=== PATIENT | male | born 1940 | race Caucasian/White ===

== ENCOUNTER 2019-01-17 08:44 | Day surgery (SDC) | payer OTHER, SELFPAY ==
[2019-01-17 12:43] VITALS: BP 152/83; PULSE 84; RESP 16; TEMP 36.7; O2SAT 96; BMI 27.3
[2019-01-17] MEDS: PROPARACAINE 0.5% OPHTH SOL 2 DROPS EYE-OP (12:56)
[2019-01-17] MEDS: CATARACT EYE COMPOUND (10 DROPS/SYRINGE) 3 DROPS EYE-OP (13:00)
--- NOTE | 2019-01-17 13:29 | PM.PREOP ---
Pre-operative Note Interval Note History & Physical reviewed/Exam performed by Physician: No Changes to H&P: No
--- NOTE | 2019-01-17 13:29 | PM.OP.1 ---
Operative Date/Time/Diagnoses Pre-op diagnosis: Nuclear cataract right eye Procedure & Clinicians Procedure: Cataract Surgery Same procedure as scheduled: Yes Surgeon: Man Mazariegos Anesthesia Type: MAC +/- and Sedation Operative Notes Procedure in detail: Patient brought to the operating suite. Tetracaine drops placed in the right eye. Patient was prepped and draped in sterile manner. Wire lid speculum was placed in the eye. Betadine drops were placed on the eye. This was irrigated. Lidocaine jelly was placed on the eye. A paracentesis port was created with a side-port blade. 0.1 mL 1% preservative free lidocaine was injected into the anterior chamber. The anterior chamber was deepened with viscoelastic. 2.6 mm keratome was used to create a temporal clear corneal incision. Cystotome and Utrata forceps were used to create continuous tear capsulorrhexis. Balanced salt solution was used to hydro dissect the nucleus. The phacoemulsification handpiece was inserted and the nucleus was removed using the stop and chop technique. The irrigation aspiration handpiece was inserted and the remaining cortex was removed. Anterior chamber was deepened with viscoelastic. An Deleon ZCB00 intraocular lens with a power of 21.5 was injected into the capsular bag. Irrigation aspiration handpiece was inserted and the remaining viscoelastic was removed. Incision was hydrated with balanced salt solution and found to be leak free with pressure with Weck-Marcela sponges. 0.1 mL Vigamox injected anterior chamber. 0.3 mL Kenalog 10 mg was injected subconjunctivally. Lid speculum was removed. The patient left the operating room in excellent condition. Complications: none Post-operative Condition: stable Disposition: same day surgery
[2019-01-17] MEDS: CHONDROIDTIN/SOD HYALURONATE 1.05 ML SYRINGE INTRAOCULA (13:47)
[2019-01-17] MEDS: LIDOCAINE JELLY 2% 5 ML 1 APPLIC TOP (13:47)
[2019-01-17] MEDS: PHENYLEPHRINE/LIDOCAINE VIAL (OR) 0.2 ML EYE-OP (13:48)
[2019-01-17] MEDS: MOXIFLOXACIN INJ 5 MG/ML VIAL EYE-OP (13:48)
[2019-01-17] MEDS: BALANCED SALT IRRIG SOLN NO.2 500 ML, EPINEPHrine 1 MG IRR (13:49)
[2019-01-17] MEDS: TRIAMCINOLONE 50 MG/5 ML VIAL INJ (13:49)
[2019-01-17] MEDS: TETRACAINE 0.5% OPHTH DROPS 4 ML 2 DROPS EYE-OP (13:49)
[2019-01-17 14:05] VITALS: BP 148/77; PULSE 63; RESP 16; TEMP 36.8; O2SAT 99
--- NOTE | 2019-01-17 14:26 | SUR.PHASEII ---
1415 Received report that patient was ready to go, getting dressed and needed to be discharged in the computer. Pt transfer into blue wheelchair attended by Zo Thakkar RN; volunteer notified to transport patient. No questions/concerns; DC papers provided to pt by Zo Thakkar RN.
== END 2019-01-17 14:18 | disposition home or self-care (01) ==
PROVIDERS: Family Provider Family Medicine; PCP Family Medicine; Visit Provider Ophthalmology
PROC: (CPT 66984; principal; 2019-01-17 13:45)
DX: H25.11 Age-related nuclear cataract, right eye (principal)
CPT/HCPCS: 66984; J0171; J3301

== ENCOUNTER 2019-01-31 08:39 | Day surgery (SDC) | payer OTHER, SELFPAY ==
[2019-01-31 09:50] VITALS: BP 162/72; PULSE 66; RESP 17; O2SAT 99; BMI 26.9
[2019-01-31] MEDS: CATARACT EYE COMPOUND (10 DROPS/SYRINGE) 3 DROPS EYE-OP (10:14)
[2019-01-31] MEDS: PROPARACAINE 0.5% OPHTH SOL 2 DROPS EYE-OP (10:14)
--- NOTE | 2019-01-31 10:14 | PM.PREOP ---
Pre-operative Note Interval Note History & Physical reviewed/Exam performed by Physician: No Changes to H&P: No
--- NOTE | 2019-01-31 10:15 | PM.OP.1 ---
Operative Date/Time/Diagnoses Pre-op diagnosis: Nuclear Cataract Left eye Post-op diagnosis: same Procedure & Clinicians Surgeon: Man Mazariegos Anesthesia Type: MAC +/- and Sedation Operative Notes Procedure in detail: Patient brought to the operating suite. Tetracaine drops placed in the left eye. Patient was prepped and draped in sterile manner. Wire lid speculum was placed in the eye. Betadine drops were placed on the eye. This was irrigated. Lidocaine jelly was placed on the eye. A paracentesis port was created with a side-port blade. 0.1 mL 1% preservative free lidocaine was injected into the anterior chamber. The anterior chamber was deepened with viscoelastic. 2.6 mm keratome was used to create a temporal clear corneal incision. Cystotome and Utrata forceps were used to create continuous tear capsulorrhexis. Balanced salt solution was used to hydro dissect the nucleus. The phacoemulsification handpiece was inserted and the nucleus was removed using the stop and chop technique. The irrigation aspiration handpiece was inserted and the remaining cortex was removed. Anterior chamber was deepened with viscoelastic. An Deleon ZCB00 intraocular lens with a power of 20.5 was injected into the capsular bag. Irrigation aspiration handpiece was inserted and the remaining viscoelastic was removed. Incision was hydrated with balanced salt solution and found to be leak free with pressure with Weck-Marcela sponges. 0.1 mL Vigamox injected anterior chamber. 0.3 mL Kenalog 10 mg was injected subconjunctivally. Lid speculum was removed. The patient left the operating room in excellent condition. Complications: none Post-operative Condition: stable Disposition: same day surgery
[2019-01-31] MEDS: MOXIFLOXACIN INJ 5 MG/ML VIAL EYE-OP (10:35)
[2019-01-31] MEDS: PHENYLEPHRINE/LIDOCAINE VIAL (OR) 0.2 ML EYE-OP (10:35)
[2019-01-31] MEDS: TRIAMCINOLONE 50 MG/5 ML VIAL INJ (10:35)
[2019-01-31] MEDS: LIDOCAINE JELLY 2% 5 ML 1 APPLIC TOP (10:35)
[2019-01-31] MEDS: TETRACAINE 0.5% OPHTH DROPS 4 ML 2 DROPS EYE-OP (10:36)
[2019-01-31] MEDS: BALANCED SALT IRRIG SOLN NO.2 500 ML, EPINEPHrine 1 MG IRR (10:36)
[2019-01-31 10:51] VITALS: BP 156/72; PULSE 67; RESP 16; TEMP 36.8; O2SAT 98
== END 2019-01-31 11:01 | disposition home or self-care (01) ==
LOC: OR 08:46
PROVIDERS: Family Provider Family Medicine; PCP Family Medicine; Visit Provider Ophthalmology
PROC: (CPT 66984; principal; 2019-01-31 10:45)
DX: H25.12 Age-related nuclear cataract, left eye (principal)
CPT/HCPCS: 66984; J0171; J3301

== ENCOUNTER → 2021-08-27 07:48 | Outpatient (CLI) | payer MEDICARE, SELFPAY ==
--- NOTE | 2021-08-27 | DI.MRI.S_ITS ---
PROCEDURE: MR LUMBAR SPINE WO CON INDICATIONS: Low back pain, unspecified TECHNIQUE: Noncontrast sagittal T1 spin echo and T2 fast echo, sagittal STIR, and T2 fast spin echo through the lumbar spine. In cases with scoliosis, additional coronal T2 fast spin echo may be performed. COMPARISON: [facility], , L-SPINE WITHOUT CONTRAST, 03/12/2015, 15:22. FINDINGS: Image quality: Excellent. Alignment and Curvature: Convex right lumbar scoliosis. Mild retrolisthesis noted at T12-L1 as well as L3-4 Bone Marrow: Transitional anatomy noted. There is partial lumbarization of the S1 vertebral body. There is interval placement of right sided anyi and screw hardware from L1 through S1 with interbody fusions from L2 through S1 as well. Instrumentation appears in good position. Spinal Cord: Conus medullaris terminates at the L1 level. Visualized cord demonstrates normal signal and size. Paraspinous Soft Tissues: No paravertebral masses. T12-L1: Disc space narrowing with circumferential disc bulge present. Mild central stenosis. Severe bilateral foraminal stenosis greater on the right. L1-L2: Disc space narrowing with circumferential disc bulge and hypertrophic facet joints results in mild central stenosis. Severe right and moderate to severe left foraminal stenosis. L2-L3: Discectomy and fusion present. No central stenosis. Severe left and no right foraminal stenosis L3-L4: Discectomy and fusion present. There is moderate central stenosis. Severe right and left foraminal stenosis L4-L5: Discectomy and fusion present. Small right hemilaminectomy. Mild to moderate central stenosis present. Moderate bilateral foraminal stenosis L5-S1: Discectomy and fusion. No central stenosis present. Severe right and no left foraminal stenosis. IMPRESSION: 1. Right-sided anyi and screw lumbar spine construct lumbar interbody fusion as above. 2. Hypertrophic facet joints and scoliosis contribute to predominantly foraminal stenosis including severe foraminal stenosis at T12-L1, L1-2, L2-3, L3-4 and L5-S1. 3. Transitional anatomy Approved by: Ayad Benavides M.D. on 08/27/2021 at 18:23
== END ==
PROVIDERS: Family Provider Family Medicine; PCP Nurse Practitioner Family; Referring Provider Nurse Practitioner Family; Visit Provider Nurse Practitioner Family
DX: M54.50 Low back pain, unspecified (principal); Z91.81 History of falling; Z98.1 Arthrodesis status; M41.9 Scoliosis, unspecified; M48.061 Spinal stenosis, lumbar region without neurogenic claudication; M48.07 Spinal stenosis, lumbosacral region; M47.816 Spondylosis without myelopathy or radiculopathy, lumbar region
CPT/HCPCS: 72148